=== PATIENT | female | born 1940 | race Caucasian/White ===

== ENCOUNTER 2020-01-30 07:44 | Day surgery (SDC) | payer MEDICARE, OTHER ==
[~2020-01-30] VITALS: Ht 172.7 cm; Wt 75.5 kg
[2020-01-30] MEDS ORDERED: PROZAC20 M2 (08:03)
--- NOTE | 2020-01-30 09:00 | NUR ---
01/30/20 0900 Elena King DISCUSSION WITH PATIENT REGARDING ABNORMAL RHYTHM AND THE INFORMATION THAT PATIENT IS SCHEDULED FOR HEART MONITOR TEST THIS THURSDAY. PATIENT DENIES ANY HEART SYMPTOMS, NO SOB WITH EXERTION, NO DIZZINESS, NO CHEST PAIN. PATIENT STATED SHE HAD A LOW PULSE WHEN IN THE OFFICE GETTING HER B12 SHOT. RHYTHM STRIP LOOKS LIKE PAC'S. WILL PROCEED WITH PROCEDURE
--- NOTE | 2020-01-30 09:22 | NUR ---
01/30/20 0922 Elena King CECUM NOT REACHED. CASE ABORTED D/T POOR PREP.
== END 2020-01-30 09:53 | disposition home or self-care (01) ==
LOC: ORSCSDS 07:44
PROVIDERS: Internal Medicine Gastroenterology
PROC: 0DJD8ZZ Inspection of Lower Intestinal Tract, Via Natural or Artificial Opening Endoscopic (ICD-10-PCS; principal; 2020-01-30 09:00)
DX: R19.5 Other fecal abnormalities (principal); Z87.891 Personal history of nicotine dependence
CPT/HCPCS: J2704; J7120

== ENCOUNTER 2021-05-23 09:40 | Day surgery (SDC) | payer MEDICARE ==
[~2021-05-23] VITALS: Ht 170.2 cm; Wt 63.4 kg
[~2021-05-23 09:40] MED LIST: PROZAC20 M2
[2021-05-23] MEDS ORDERED: ASPI81CH (10:31)
[2021-05-23] MEDS ORDERED: METO25ER (10:32)
--- NOTE | 2021-05-23 12:19 | NUR ---
05/23/21 1219 Nighat Palmer 10ML NORMAL SALINE USED TO ELEVATE SIGMOID POLYP
== END 2021-05-23 12:52 | disposition home or self-care (01) ==
LOC: ORSCSDS 09:40
PROVIDERS: Internal Medicine Gastroenterology
PROC: 0DBL8ZX Excision of Transverse Colon, Via Natural or Artificial Opening Endoscopic, Diagnostic (ICD-10-PCS; principal; 2021-05-23 11:30)
PROC: 0DBN8ZX Excision of Sigmoid Colon, Via Natural or Artificial Opening Endoscopic, Diagnostic (ICD-10-PCS; principal; 2021-05-23 11:30)
DX: R19.4 Change in bowel habit (principal); D12.3 Benign neoplasm of transverse colon; D12.5 Benign neoplasm of sigmoid colon; K57.30 Diverticulosis of large intestine without perforation or abscess without bleeding; K64.4 Residual hemorrhoidal skin tags; R63.4 Abnormal weight loss; D50.9 Iron deficiency anemia, unspecified; Z86.73 Personal history of transient ischemic attack (TIA), and cerebral infarction without residual deficits; Z79.82 Long term (current) use of aspirin; Z79.899 Other long term (current) drug therapy
CPT/HCPCS: 88305; J2405; J2704; J7120